=== PATIENT | male | born 1975 | race Caucasian/White ===

== ENCOUNTER 2019-04-25 15:59 | Emergency (ER) | payer BC, OTHER ==
[~2019-04-25] VITALS: Ht 180.3 cm; Wt 106.6 kg
[2019-04-25] MEDS ORDERED: CELEXA20 MG PO (16:49)
[2019-04-25] MEDS ORDERED: LIPITOR10 MG PO (16:50)
[2019-04-25] MEDS ORDERED: KEFLEX500 M1 PO (18:28)
[2019-04-25] MEDS ORDERED: NORCO 5-325 TA1 EAC1 PO (18:28)
[2019-04-25 19:00] VITALS: BP 126/69
== END 2019-04-25 19:00 | disposition home or self-care (01) ==
LOC: ER 15:59
DX: S62.631B Displaced fracture of distal phalanx of left index finger, initial encounter for open fracture (principal); W29.3XXA Contact with powered garden and outdoor hand tools and machinery, initial encounter; Y93.89 Activity, other specified; Y92.89 Other specified places as the place of occurrence of the external cause; Y99.8 Other external cause status